=== PATIENT | female | born 1970 ===

== ENCOUNTER 2021-09-28 05:53 | Day surgery (SDC) | payer OTHER ==
[~2021-09-28] VITALS: Ht 160 cm; Wt 69.9 kg
[~2021-09-28 05:53] MED LIST: CATAFLAN; CLONAZEPAM2 MG PO; ELAVIL PO; ZOLOFT100 MG PO
== END 2021-09-28 12:20 | disposition home or self-care (01) ==
LOC: CIR.AMB 05:53
PROVIDERS: ATTEND Orthopaedic Surgery Hand Surgery
DX: L03.011 Cellulitis of right finger (principal); Z20.822 Contact with and (suspected) exposure to COVID-19